=== PATIENT | female | born 1940 | race Native Hawaiian/Other Pacific Islander ===

== ENCOUNTER 2018-11-14 18:42 | Emergency (ER) | payer OTHER ==
[~2018-11-14] VITALS: Ht 157.5 cm; Wt 109.3 kg
[2018-11-14 19:45] LABS: PLATELET COUNT 177 K/uL (152-353)
[2018-11-14 20:00] LABS: POTASSIUM 4.6 mmol/L (3.6-5.2)
[2018-11-14 20:40] VITALS: BP 135/55; TEMP 97.7
[2018-11-14] MEDS ORDERED: UNITH DIRECT88 MCG PO (23:07)
[2018-11-14] MEDS ORDERED: LORA0.5T17 PO (23:08)
[2018-11-14] MEDS ORDERED: PERCOCET1 TA3 PO (23:09)
[2018-11-14] MEDS ORDERED: TYLENOL325 MG PO (23:12)
[2018-11-14] MEDS ORDERED: DULCOLAX10 MG RE (23:15)
[2018-11-14] MEDS ORDERED: ONDA4TAB3 PO (23:18)
[2018-11-14] MEDS ORDERED: DIPH25CA90 PO (23:20)
[2018-11-14] MEDS ORDERED: ALUM-67 PO (23:22)
[2018-11-14] MEDS ORDERED: IMODIUM A-1 MG/7.5 M PO (23:24)
[2018-11-14] MEDS ORDERED: COUGH100 MG/5 M PO (23:26)
[2018-11-14] MEDS ORDERED: DICYCLOMINE HYD20 MG PO (23:29)
[2018-11-14] MEDS ORDERED: ALBUSOL INH (23:34)
[2018-11-14] MEDS ORDERED: MAGNSUS68 PO (23:37)
[2018-11-14] MEDS ORDERED: GLUCAGEN HYPOKIT1 MG IM (23:39)
[2018-11-14] MEDS ORDERED: BISACODYL5 M1 PO (23:40)
[2018-11-14] MEDS ORDERED: HUMULIN R100 UNIT/M IM (23:43)
[2018-11-14] MEDS ORDERED: NORMAL SALINE F0.9 % IR (23:46)
[2018-11-14] MEDS ORDERED: SERTRALINE HYD100 MG PO (23:49)
[2018-11-14] MEDS ORDERED: DONE5TAB PO (23:50)
[2018-11-14] MEDS ORDERED: IPRAAER INH (23:51)
[2018-11-14] MEDS ORDERED: VIT C/BIOFLV1000 MG PO (23:54)
[2018-11-14] MEDS ORDERED: MYRBETRIQ25 MG PO (23:55)
[2018-11-14] MEDS ORDERED: UTI-STAT PO (23:56)
[2018-11-14] MEDS ORDERED: ASPIRIN325 M1 PO (23:57)
[2018-11-14] MEDS ORDERED: DULOXETINE HCL30 MG PO (23:58)
[2018-11-14] MEDS ORDERED: CLOPIDOGREL75 MG PO (23:59)
[2018-11-14] MEDS ORDERED: AMLO2.5T PO (23:59)
[2018-11-15] MEDS ORDERED: METOCLOPRAM5 MG (00:01)
[2018-11-15] MEDS ORDERED: TRULICITY1.5 MG/0.5 SC (00:03)
[2018-11-15] MEDS ORDERED: MONTELUKAST SOD10 MG PO (00:05)
[2018-11-15] MEDS ORDERED: TOPAMAX50 MG PO (00:06)
[2018-11-15] MEDS ORDERED: SERT50TA PO (00:09)
[2018-11-15] MEDS ORDERED: LIPITOR40 MG PO (00:10)
[2018-11-15] MEDS ORDERED: NEURONTIN 100M100 MG PO (00:11)
[2018-11-15] MEDS ORDERED: ROPINIROLE0.25 MG PO (00:12)
[2018-11-15] MEDS ORDERED: BUSP15TAB2 PO (00:13)
[2018-11-15] MEDS ORDERED: ACIDOPHILU3 PO (00:14)
[2018-11-15] MEDS ORDERED: METFORMIN500 MG/5 M PO (00:15)
[2018-11-15] MEDS ORDERED: ACID CONTROL MA20 MG PO (00:16)
[2018-11-15] MEDS ORDERED: HUMULIN R100 UNIT/M IM (00:29)
== END 2018-11-14 20:42 | disposition other institution (70) ==
LOC: ED 18:42
DX: F22 Delusional disorders (principal); N39.0 Urinary tract infection, site not specified; F41.8 Other specified anxiety disorders; I45.19 Other right bundle-branch block; Z04.6 Encounter for general psychiatric examination, requested by authority
CPT/HCPCS: 36415; 80053; 81000; 85027; 87086; 87088; 93005; 99285